=== PATIENT | female | born 1990 | race Caucasian/White ===

== ENCOUNTER 2023-08-18 22:21 | Emergency (ER) | payer SELFPAY ==
[~2023-08-18] VITALS: Ht 170.2 cm; Wt 59.0 kg
[2023-08-18 22:24] VITALS: BP 90/70; PULSE 86; RESP 16; TEMP 97.7; O2SAT 99
[2023-08-18 22:35] VITALS: BP 90/70; RESP 16; TEMP 97.7; O2SAT 99
[2023-08-18] MEDS: ACETAMINOPHEN EXTRA STRENGTH 500 MG TAB PO ONE (23:32)
[2023-08-18] MEDS: ONDANSETRON 4 MG ODT PO ONE (23:33)
[2023-08-18 23:34] LABS: BASOPHILS # (AUTO) 0.1 K/uL (0.00-0.22); BASOPHILS % (AUTO) 0.5 % (0.0-2.0); EOSINOPHILS # (AUTO) 0.1 K/uL (0-0.4); EOSINOPHILS % (AUTO) 0.9 % (0.0-4.0); HEMATOCRIT 41.8 % (36-48); HEMOGLOBIN 14.1 g/dL (12.0-16.0); LYMPHOCYTES # (AUTO) 2.9 K/uL (2.5-16.5); MEAN CORPUSCULAR HEMOGLOBIN 32 pg (27-31); MEAN CORPUSCULAR HGB CONC 34 g/dL (33-37); MEAN CORPUSCULAR VOLUME 94.9 fL (80-94); MONOCYTES # (AUTO) 0.9 K/uL (0.8-1.0); MONOCYTES % (AUTO) 7.3 % (1.7-9.3); NEUTROPHILS # (AUTO) 7.8 K/uL (1.8-7.7); NEUTROPHILS % (AUTO) 66.3 % (42.2-75.2); PLATELET COUNT (AUTO) 276 K/uL (140-450); WHITE BLOOD COUNT (AUTO) 11.7 K/uL (4.8-10.8)
[2023-08-18 23:40] VITALS: PULSE 77; O2SAT 99
[2023-08-19 00:03] LABS: ALANINE AMINOTRANSFERASE 21 U/L (12-78); ALBUMIN 4.3 g/dL (3.4-5.0); ALKALINE PHOSPHATASE 61 U/L (50-136); ANION GAP 13.5 (8-16); ASPARTATE AMINOTRANSFERASE 19 U/L (15-37); CALCIUM 9.5 mg/dL (8.5-10.1); CHLORIDE 105 mmol/L (98-107); CREATININE 0.8 mg/dL (0.6-1.3); GFR ARICAN-AMERICAN 106 mL/min (>90); GFR NON ARICAN-AMERICAN 88 mL/min (>90); GLUCOSE 110 mg/dL (74-106); POTASSIUM 3.5 mmol/L (3.5-5.1); SODIUM SERUM 141 mmol/L (136-145); TOTAL BILIRUBIN 0.3 mg/dL (0.0-1.0); TOTAL PROTEIN, SERUM 8.9 g/dL (6.4-8.2); UREA NITROGEN, BLOOD 15 mg/dL (7-18)
[2023-08-19 00:04] LABS: FLU A ANTIGEN negative (NEGATIVE); FLU B ANTIGEN NEGATIVE (NEGATIVE)
[2023-08-19 00:46] LABS: APPEARANCE,URINE CLEAR (CLEAR); BILIRUBIN,URINE NEGATIVE (NEGATIVE); BLOOD, URINE NEGATIVE (NEGATIVE); COLOR,URINE YELLOW (YELLOW); LEUKOCYTE ESTERASE ,URINE NEGATIVE (NEGATIVE); NITRITE, URINE NEGATIVE (NEGATIVE); PROTEIN,URINE NEGATIVE (NEGATIVE); UGLUCOSE NEGATIVE (NEGATIVE); UROBILINOGEN,URINE 0.2 EU/dL (0.2 - 1)
[2023-08-19 00:47] LABS: BLOOD GAS BASE EXCESS -0.4 mmol/L (-2.0-2.0); BLOOD GAS HCO3 21.3 mmol/L (22-26); BLOOD GAS PCO2 27.5 mmHg (35-45); BLOOD GAS PH 7.506 (7.35-7.45); BLOOD GAS PO2 114.6 mmHg (75-100)
[2023-08-19 00:48] LABS: BLOOD GAS O2 SAT% 98.7 % (92.0-98.5); FRACTIONATED INSPIRED OXYGEN 0.21 % (0.21-100.00)
[2023-08-19 01:17] LABS: AMPHETAMINE, URINE NEGATIVE ng/ml (NEG <=1000); BARBITURATE, URINE NEGATIVE ng/ml (NEG <=200); BENZODIAZEPINE, URINE NEGATIVE ng/mL (NEG <=200); CANNABINOID, URINE POSITIVE ng/mL (NEG <=50); COCAINE, URINE NEGATIVE ng/mL (NEG <=300); OPIATE, URINE NEGATIVE ng/mL (NEG <=2000); PHENCYCLIDINE SCREEN,URINE NEGATIVE ng/mL (NEG <=25)
[2023-08-19] MEDS ORDERED: ONDA-188 PO (01:20)
== END 2023-08-19 01:30 | disposition home or self-care (01) ==
LOC: MED 22:21
DX: R07.9 Chest pain, unspecified (principal); Z20.822 Contact with and (suspected) exposure to COVID-19; T58.91XA Toxic effect of carbon monoxide from unspecified source, accidental (unintentional), initial encounter; R11.0 Nausea; Z79.899 Other long term (current) drug therapy; Y92.89 Other specified places as the place of occurrence of the external cause
CPT/HCPCS: 36415; 71045; 80053; 80305; 81003; 84484; 85025; 85379; 87426; 87804; 93005; 99285; Q0092; Q0162